=== PATIENT | female | born 1960 | race Caucasian/White ===

== ENCOUNTER 2024-04-19 08:45 | Outpatient (AMB) | payer BC, SELFPAY ==
--- NOTE | 2024-04-19 08:49 | MHC.OFFWIV ---
Intake Vital Signs 04/19/24 08:51 Height 5 ft 6 in Weight 130 lb 2 oz BMI 21.0 BP 132/82 Blood Pressure Location Lt brachial Position Sitting Respiration 14 Pulse 88 Pulse Source Pulse Oximeter Pulse Oximetry (%) 96 Oxygen Delivery Method Room Air Intake Visit Reasons: Posion vaibhav Intake Note: Poison vaibhav both arms and neck, possibly in the left eye Patient Tobacco Use Status: Never used Tobacco Allergies No Known Allergies Allergy (Verified 04/19/24 08:57) Medication List - Last Reconciled 04/19/24 by Barbara Diaz, EYEGLASS FRAMES INSPECTOR- denosumab (Prolia) mg subcut diphenoxylate-atropine 2.5-0.025 mg 1 tab PO BID PRN nortriptyline 50 mg PO BEDTIME nortriptyline 50 mg PO BEDTIME pantoprazole 40 mg PO BID Do you need a note to return to daycare/school/sports/work: No HPI HPI Comments History of Present Illness Details 63-year-old female here today with complaints of poison vaibhav. Reports about 1 week ago was doing [employer] work. She had a towel which she was using to wipe sweat that she placed on the ground. She was wiping her body face and neck with this towel. Shortly thereafter she started to break out in a poison vaibhav rash affecting the back of her neck, chest, bilat arms, bilat ankles and most recently today the left side of her face. Reports history of poison vaibhav dermatitis in the past that has responded well to prednisone. Exam Awake alert oriented no acute distress Speaking in full sentences Scattered poison vaibhav dermatitis to nape of neck, left cheek bone, left periorbital area, anterior chest, bilat arms, bilat ankles Plan Zyrtec Pred taper Self inoculation prevention Education This note is constructed using voice recognition software. While every effort has been made to ensure accuracy in tracer powder blender, still errors may have been included Sometimes, these errors may affect the content or meaning of the given sentence . PFSH Social History Patient Tobacco Use Status: Never used Tobacco Physical Exam Vital Signs: Last Vital Signs Pulse 88 04/19/24 08:51 Resp 14 04/19/24 08:51 BP 132/82 04/19/24 08:51 Pulse Ox 96 04/19/24 08:51 Oxygen Delivery Method Room Air 04/19/24 08:51 BMI result Body Mass Index 21.0 Assessment & Plan Assessment & Plan (1) Poison vaibhav dermatitis: Code(s): L23.7 - Allergic contact dermatitis due to plants, except food Plan: . Medications: New cetirizine (Zyrtec) 10 mg PO DAILY 30 tabs 0RF prednisone 5 tabs x 2 days, 4 tabs x 2 days, 3 tabs x 2 days, 2 tabs x 2 days, 1 tab x 2 days and then STOP. 10 mg PO DIRECTED 10 days 30 tabs 0RF Patient Instructions: Advised to take the medication daily with food. If new lesions crop up while on the taper advised to return to the office as we may need to hold the taper and/or extend the taper to prevent recurrence. Advised to cover the areas to prevent spread using something like a Tegaderm. Wash linen to also help prevent spread. Continue to use the [id number] skin scrubs to help protect the rest of your skin. Do your best to avoid contact. Coding Level of Care Code Est Pt Level 3 (86237) Diagnoses Poison vaibhav dermatitis L23.7
[2024-04-19 08:51] VITALS: BP 132/82; PULSE 88; RESP 14; O2SAT 96; BMI 21.0
== END 2024-04-19 09:07 | disposition home or self-care (01) ==
PROVIDERS: Visit Provider Nurse Practitioner Family
DX: L23.7 Allergic contact dermatitis due to plants, except food (principal)
CPT/HCPCS: 99213

== ENCOUNTER 2024-04-30 08:33 | Outpatient (AMB) | payer BC, SELFPAY ==
--- NOTE | 2024-04-30 08:37 | MHC.PC.OV ---
Vital Signs 04/30/24 08:45 Height 5 ft 6 in Weight 129 lb 6 oz BMI 20.9 BP 118/66 Blood Pressure Location Lt brachial Position Sitting Respiration 14 Pulse 76 Pulse Source Pulse Oximeter Temp 98.2 F Temp Source Oral Pulse Oximetry (%) 98 Oxygen Delivery Method Room Air Intake Visit Reasons: [facility] Intake Note: New patient visit Allergies No Known Allergies Allergy (Verified 04/19/24 08:57) Medication List - Last Reconciled 04/30/24 by Riya Taylor MD denosumab (Prolia) mg subcut diazepam 2 - 4 mg PO DAILY PRN diphenoxylate-atropine 2.5-0.025 mg 1 tab PO BID PRN famotidine 40 mg PO BID nortriptyline 50 mg PO BEDTIME Tobacco use date assessed: 04/30/24 Fall risk assessment: No Falls in past year Last assessed Fall Risk: 04/30/24 Dental Screening Dental Screen Date: 04/30/24 Did you have a dental visit in the last 12 months?: Yes Did you have a dental problem in the last 6 months where you did not have access to dental care?: No Was dental information given to patient?: Patient has dentist HPI HPI Comments History of Present Illness Details The patient is a 64-year-old female with a past medical history of grief, depression with anxiety, insomnia, osteoporosis, lumbar spondylosis and compression deformity, IBS, colon polyps, vitiligo presenting for follow-up Depression with anxiety, insomnia: Her about 4 years ago. she still has a lot of sadness, loneliness. She does have many friends however finds that she is often the 3rd wheel. She has not tried dating. She has seen a therapist in the past. She did not find that very helpful. She tried multiple antidepressants and antianxiety medications do not like the way it made her feel. She continues to take diazepam 2 mg nightly as needed. It also helps with muscle spasm in her lower back. She previously took Ambien for insomnia but stopped that Reports left knee clicking and pain. No swelling. Has been increasingly bothersome over time . More easy bruising over the past few years Mammogram 09/2023 Pap 09/18/2023 ROS CONSTITUTIONAL: Denies weight loss, fever and chills. HEENT: Denies changes in vision and hearing. RESPIRATORY: Denies SOB and cough. CV: Denies palpitations and CP GI: Denies abdominal pain, nausea, vomiting and diarrhea. : Denies dysuria and urinary frequency. MSK: Crepitus b/l knees SKIN: Denies rash and pruritus. NEUROLOGICAL: Denies headache PSYCHIATRIC: Denies recent changes in mood. PHYSICAL EXAM: GENERAL: Alert and oriented x 3. NAD EYES: EOMI. Anicteric. HENT: Moist mucous membranes. No scleral icterus. No cervical lymphadenopathy. LUNGS: Clear to auscultation bilaterally. CARDIOVASCULAR: Regular rate and rhythm. No murmur. No JVD. ABDOMEN: Soft, non-tender +bs EXTREMITIES: No edema. Non-tender. SKIN: No rashes or lesions. Warm. NEUROLOGIC: No focal neurological deficits. CN II-XII grossly intact PSYCHIATRIC: Cooperative. Appropriate mood and affect [facility] Medical History (Updated 04/30/24 @ 10:23 by Riya Taylor MD) Vitiligo Sternal pain Sternal fracture Osteoporosis Lumbar spondylosis Insomnia IBS (irritable bowel syndrome) History of COVID-19 Depression with anxiety Compression deformity of vertebra Colon polyp Family History (Updated 04/30/24 @ 08:57 by Iqra Pacheco CMA) Mother Lung cancer Paternal Grandmother Breast cancer Social History (Updated 04/30/24 @ 08:58 by Iqra Pacheco CMA) Housing: House Patient Tobacco Use Status: Never used Tobacco e-Cigarette/Vaping Use: Never Used Second Hand Smoke Exposure: No service: No Current occupational status: employed 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 1. Little interest or pleasure in doing things: several days 2. Feeling down, depressed, or hopeless: several days 3. Trouble falling or staying asleep, or sleeping too much: several days 4. Feeling tired or having little energy: several days 5. Poor appetite or overeating: several days 6. Feeling bad about yourself - or that you are a failure or have let yourself or your family down: not at all 7. Trouble concentrating on things, such as reading the newspaper or watching television: several days 8. Moving or speaking so slowly that other people could have noticed. Or the opposite - being so fidgety or restless that you have been moving around a lot more than usual: several days 9. Thoughts that you would be better off or of hurting yourself in some way: several days Total score: 8 Depression Screening Interpretation: Positive Depression Screening Done: Yes 47708 - PHQ-9 Billing: Yes Source: Developed by Drs. Philippe Dobson, Johanny Moon, Miguel Fuentes and colleagues, with an educational jesus from [employer]. Thrive Questionnaire Date Thrive assessed: 04/30/24 I am a: Patient What is your living situation today?: I have a steady place to live Within the past 12 months, did the food you bought not last and you didn't have the money to get more?: Never true Within the past 12 months, did you worry whether your food would run out before you got money to buy more?: Never true Do you have trouble paying for medicines?: No Do you have trouble getting transportation to medical appointments?: No Do you have trouble paying your heating and electricity bill?: No Do you have trouble taking care of your child, family member or friend?: No Do you have trouble with day-to-day activities such as bathing, preparing meals, shopping, managing finances, etc.?: No Are you currently unemployed and looking for a job?: No Are you interested in more education?: No Please select the resources that you would like help with: Education Currently or been in a relationship where the following occur: No concerns reported THRIVE Score: 0 AUDIT C Alcohol Use Questionnaire (AUDIT-C) 1. How often do you have a drink containing alcohol?: Never 3. How often do you have six or more drinks on one occasion?: Never Total Score: 0 CARMEN-7 AMB Questionnaire CARMEN-7 Date CARMEN - 7 assessed: 04/30/24 Feeling nervous, anxious, or on edge: 1 = Several days Not being able to stop or control worryin = Several days Worrying too much about different things: 1 = Several days Trouble relaxin = Not at all Being so restless that it is hard to sit still: 0 = Not at all Becoming easily annoyed or irritable: 0 = Not at all Feeling afraid as if something awful might happen: 0 = Not at all Total CARMEN-7 score (0-4 normal; 5-9 mild; 10-14 moderate; 15-21 severe): 3 Source: Developed by Drs. Philippe Dobson, Johanny Moon, Miguel Fuentes and colleagues, with an educational jesus from [employer]. CARMEN-7 Assessment Billing CARMEN-7 Assessment Tool: CARMEN-7 Assessment 23056 Physical exam (Primary Care) Vital Signs: Last Vital Signs Temp 98.2 F 04/30/24 08:45 Pulse 76 04/30/24 08:45 Resp 14 04/30/24 08:45 BP 118/66 04/30/24 08:45 Pulse Ox 98 04/30/24 08:45 Oxygen Delivery Method Room Air 04/30/24 08:45 BMI result Body Mass Index 20.9 Tobacco/Smoking Status: Tobacco use Status Tobacco use date assessed 04/30/24 04/30/24 08:47 Patient Tobacco Use Status Never used Tobacco 04/30/24 08:58 e-Cigarette/Vaping Use Never Used 04/30/24 08:58 PHQ-9: PHQ-9 Score PHQ-9: Total score 8 04/30/24 09:01 Depression Screening Interpretation: Positive Thrive Assessment: Date of Thrive Assessment Date Thrive assessed 04/30/24 04/30/24 09:01 Currently or been in a relationship where the following occur: No concerns reported Assessment and Plan Assessment & Plan (1) IBS (irritable bowel syndrome): Code(s): K58.9 - Irritable bowel syndrome without diarrhea Qualifiers: Irritable bowel syndrome type: unspecified Qualified Code(s): K58.9 - Irritable bowel syndrome without diarrhea Plan: stable (2) Osteoporosis: Code(s): M81.0 - Age-related osteoporosis without current pathological fracture Qualifiers: Osteoporosis type: age-related Presence of current pathological fracture: without current pathological fracture Qualified Code(s): M81.0 - Age-related osteoporosis without current pathological fracture (3) Left knee pain: Code(s): M25.562 - Pain in left knee Qualifiers: Chronicity: chronic Qualified Code(s): M25.562 - Pain in left knee; G89.29 - Other chronic pain (4) Easy bruising: Code(s): R23.3 - Spontaneous ecchymoses (5) Depression: Code(s): F32.A - Depression, unspecified Qualifiers: Depression Type: major depressive disorder Major depression recurrence: recurrent Active/Remission status: in partial remission Qualified Code(s): F33.41 - Major depressive disorder, recurrent, in partial remission Orders: Orders AMB INR Today K58.9 - Irritable bowel syndrome without diarrhea, M25.562 - Pain in left knee, M81.0 - Age-related osteoporosis without current pathological fracture, R23.3 - Spontaneous ecchymoses, Z13.9 - Encounter for screening, unspecified Complete Blood Count Auto Diff Today K58.9 - Irritable bowel syndrome without diarrhea, M25.562 - Pain in left knee, M81.0 - Age-related osteoporosis without current pathological fracture, R23.3 - Spontaneous ecchymoses Prothrombin Time INR Today K58.9 - Irritable bowel syndrome without diarrhea, M25.562 - Pain in left knee, M81.0 - Age-related osteoporosis without current pathological fracture, R23.3 - Spontaneous ecchymoses Medications: New diclofenac sodium 1% (Voltaren Arthritis Pain) apply to left knee 4 grams topical QID 100 grams 1RF Coding Level of Care Code Est Pt Level 4 (98713) Complex EM visit Add On G2211 Diagnoses Irritable bowel syndrome, unspecified type K58.9 Irritable bowel syndrome type: unspecified Age-related osteoporosis without current pathological fracture M81.0 Osteoporosis type: age-related Presence of current pathological fracture: without current pathological fracture Chronic pain of left knee M25.562; G89.29 Chronicity: chronic Easy bruising R23.3 Recurrent major depressive disorder, in partial remission F33.41 Depression Type: major depressive disorder Major depression recurrence: recurrent Active/Remission status: in partial remission Additional Codes CARMEN-7 Assessment Billing - CARMEN-7 Assessment Tool: CARMEN-7 Assessment [id number] ([id number])
[2024-04-30 08:45] VITALS: BP 118/66; PULSE 76; RESP 14; TEMP 36.8; O2SAT 98; BMI 20.9
== END 2024-04-30 09:17 | disposition home or self-care (01) ==
PROVIDERS: Visit Provider Internal Medicine
DX: K58.9 Irritable bowel syndrome, unspecified (principal); M81.0 Age-related osteoporosis without current pathological fracture; F33.41 Major depressive disorder, recurrent, in partial remission; M25.562 Pain in left knee; G89.29 Other chronic pain; R23.3 Spontaneous ecchymoses
CPT/HCPCS: 99214

== ENCOUNTER 2024-04-30 09:36 | Outpatient (REF) | payer BC, SELFPAY ==
[2024-04-30 11:28] LABS: MANUAL DIFF FLAG NO
[2024-04-30 11:37] LABS: Basophils Percent Auto 0.5 % (0-2); Eosinophils Absolute Auto 0.3 X10*3/uL (0.0-0.4); Eosinophils Percent Auto 3.5 % (0-4); Hematocrit 37.3 % (37.0-47.0); Hemoglobin 12.1 g/dl (12.0-16.0); Imm Gran Abs Auto 0.03 X10*3/uL (0.00-0.03); Imm Gran Pct Auto 0.3 % (0.0-0.4); Lymphocytes Absolute Auto 4.9 X10*3/uL (1.2-4.9); Lymphocytes Percent Auto 56.7 % (20-40); Mean Corpuscular HGB Conc 32.4 g/dl (31.0-35.0); Mean Corpuscular Hemoglobin 28.8 pg (27.0-33.0); Mean Corpuscular Volume 88.8 fL (80.0-98.0); Mean Platelet Volume 10.2 fL (9.4-12.3); Monocytes Absolute Auto 0.6 X10*3/uL (0.1-1.2); Monocytes Percent Auto 7.4 % (2-11); Neutrophils Absolute Auto 2.7 x10*3/uL (2.0-8.3); Neutrophils Percent Auto 31.6 % (45-73); Platelet Count 334 X10*3/uL (160-400); Red Cell Distribution Width 12.5 % (11.0-16.0); White Blood Count 8.6 X10*3/uL (4.8-10.8)
[2024-04-30 11:47] LABS: INTERNATIONAL NORM RATIO 0.9 (0.9-1.1); Prothrombin Time 10.6 SEC (11.1-13.3)
== END 2024-04-30 09:37 | disposition home or self-care (01) ==
LOC: HO.WFDLDS 09:36
PROVIDERS: Visit Provider Internal Medicine
DX: M25.562 Pain in left knee (principal); R23.3 Spontaneous ecchymoses; K58.9 Irritable bowel syndrome, unspecified; M81.0 Age-related osteoporosis without current pathological fracture
CPT/HCPCS: 36415; 85025; 85610

== ENCOUNTER 2024-12-09 11:40 | Outpatient (AMB) | payer BC, SELFPAY ==
--- NOTE | 2024-12-09 11:41 | MHC.PC.OV ---
Vital Signs 12/09/24 11:45 Height 5 ft 6 in Weight 132 lb BMI 21.3 BP 139/72 Blood Pressure Location Lt brachial Position Sitting Respiration 16 Pulse 90 Pulse Source Pulse Oximeter Temp 98.4 F Temp Source Oral Pulse Oximetry (%) 100 Oxygen Delivery Method Room Air Intake Visit Reasons: pain on her right shoulder Intake Note: patient here c/o pain on her right shoulder for a couple weeks Data Management Engineer Required: No Is last menstrual period known: No Post menopausal: No Patient : No Allergies No Known Allergies Allergy (Verified 12/09/24 11:52) Medication List - Last Reconciled 12/09/24 by Lexie Heck CNP denosumab (Prolia) mg subcut diazepam 2 - 4 mg PO DAILY PRN diclofenac sodium 1% (Voltaren Arthritis Pain) 4 grams topical QID diphenoxylate-atropine 2.5-0.025 mg 1 tab PO BID PRN famotidine 40 mg PO BID nortriptyline 50 mg PO BEDTIME Tobacco use date assessed: 12/09/24 Fall risk assessment: No Falls in past year Last assessed Fall Risk: 12/09/24 Dental Screening Dental Screen Date: 12/09/24 Did you have a dental visit in the last 12 months?: Yes Did you have a dental problem in the last 6 months where you did not have access to dental care?: No Was dental information given to patient?: Patient has dentist HPI HPI Comments History of Present Illness Details 64-year-old female presents with complaints of upper arm pain for the past 2 months. She describes the pain as achy. The pain was initially intermittent but has been consistent over the past 2 weeks. She believes the pain is provoked by shoveling snow. She denies fall, injury, or trauma. She denies tingling, numbness, or loss of sensation. She has not taken any medication for her pain. [facility] Medical History (Updated 12/09/24 @ 12:06 by Lexie Heck CNP) Vitiligo Sternal pain Sternal fracture Osteoporosis Lumbar spondylosis Insomnia IBS (irritable bowel syndrome) History of COVID-19 Depression with anxiety Compression deformity of vertebra Colon polyp Family History (Updated 04/30/24 @ 08:57 by Iqra Pacheco CMA) Mother Lung cancer Paternal Grandmother Breast cancer Social History (Updated 04/30/24 @ 08:58 by EMMA Carlson Housing: House Patient Tobacco Use Status: Never used Tobacco e-Cigarette/Vaping Use: Never Used Second Hand Smoke Exposure: No Patient : No service: No Current occupational status: employed 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 1. Little interest or pleasure in doing things: nearly every day 2. Feeling down, depressed, or hopeless: not at all 3. Trouble falling or staying asleep, or sleeping too much: not at all 4. Feeling tired or having little energy: several days 5. Poor appetite or overeating: not at all 6. Feeling bad about yourself - or that you are a failure or have let yourself or your family down: not at all 7. Trouble concentrating on things, such as reading the newspaper or watching television: not at all 8. Moving or speaking so slowly that other people could have noticed. Or the opposite - being so fidgety or restless that you have been moving around a lot more than usual: not at all 9. Thoughts that you would be better off or of hurting yourself in some way: not at all Total score: 4 Depression Screening Interpretation: Negative Depression Screening Done: Yes Source: Developed by Drs. Philippe Dobson, Johanny Moon, Miguel Fuentes and colleagues, with an educational jesus from [employer]. Thrive Questionnaire Date Thrive assessed: 04/30/24 I am a: Patient What is your living situation today?: I have a steady place to live Within the past 12 months, did the food you bought not last and you didn't have the money to get more?: I choose not to answer this question Within the past 12 months, did you worry whether your food would run out before you got money to buy more?: I choose not to answer this question Do you have trouble paying for medicines?: I choose not to answer this question Do you have trouble getting transportation to medical appointments?: I choose not to answer this question Do you have trouble paying your heating and electricity bill?: I choose not to answer this question Do you have trouble taking care of your child, family member or friend?: I choose not to answer this question Do you have trouble with day-to-day activities such as bathing, preparing meals, shopping, managing finances, etc.?: I choose not to answer this question Are you currently unemployed and looking for a job?: Yes Are you interested in more education?: I choose not to answer this question Please select the resources that you would like help with: None Currently or been in a relationship where the following occur: I choose not to answer THRIVE Score: 0 AUDIT C Alcohol Use Questionnaire (AUDIT-C) 1. How often do you have a drink containing alcohol?: Never Total Score: 0 CARMEN-7 AMB Questionnaire CARMEN-7 Date CARMEN - 7 assessed: 04/30/24 Feeling nervous, anxious, or on edge: 0 = Not at all Not being able to stop or control worryin = Not at all Worrying too much about different things: 0 = Not at all Trouble relaxin = Not at all Being so restless that it is hard to sit still: 0 = Not at all Becoming easily annoyed or irritable: 0 = Not at all Feeling afraid as if something awful might happen: 0 = Not at all Total CARMEN-7 score (0-4 normal; 5-9 mild; 10-14 moderate; 15-21 severe): 0 Source: Developed by Drs. Philippe Dobson, Johanny Moon, Miguel Fuentes and colleagues, with an educational jesus from [employer]. Review of Systems Const Details: Const Denies chills, Denies fatigue, Denies fever(s), Denies headache(s) and Denies weakness ENT Denies dizziness and Denies headache(s) Card Denies chest pain, Denies lightheadedness, Denies dyspnea and Denies other (Palpitations) Resp Denies cough, Denies dyspnea, Denies wheezing and Denies other ( shortness of breath) GI Denies abdominal pain, Denies melena, Denies hematochezia, Denies change in bowel habits, Denies dyspepsia and Denies nausea Denies hematuria and Denies dysuria Musc Reports as per HPI Skin/Breast Denies rash, Denies unusual bruising and Denies wounds Neuro Denies abnormal gait, Denies dizziness, Denies headache(s), Denies memory loss, Denies numbness, Denies Sensory deficit (Neuro), Denies tingling and Denies weakness Psych Denies anxiety, Denies depression, Denies memory loss Endo Denies cold intolerance, Denies fatigue, Denies heat intolerance, Denies polydipsia and Denies polyuria Aller/Immun Denies wheezing Physical exam (Primary Care) Vital Signs: Last Vital Signs Temp 98.4 F 12/09/24 11:45 Pulse 90 12/09/24 11:45 Resp 16 12/09/24 11:45 BP 139/72 12/09/24 11:45 Pulse Ox 100 12/09/24 11:45 Oxygen Delivery Method Room Air 12/09/24 11:45 BMI result Body Mass Index 21.3 Tobacco/Smoking Status: Tobacco use Status Tobacco use date assessed 12/09/24 12/09/24 11:47 Patient Tobacco Use Status Never used Tobacco 12/09/24 11:43 e-Cigarette/Vaping Use Never Used 12/09/24 11:43 PHQ-9: PHQ-9 Score PHQ-9: Total score 4 12/09/24 11:43 Depression Screening Interpretation: Negative Thrive Assessment: Date of Thrive Assessment Date Thrive assessed 04/30/24 12/09/24 11:43 Currently or been in a relationship where the following occur: I choose not to answer Const Other: General: no acute distress and well developed Nutritional Appearance: well nourished Orientation/consciousness: patient oriented x3 HENMT Head: Yes normocephalic and Yes atraumatic Eyes General: appearance normal, both eyes and all related structures Pupils: Equal, round and reactive pupils present EOM: EOMs intact bilaterally Resp Effort & Inspection: normal respiratory effort Auscultation: clear to auscultation bilaterally Cardio Rate: regular rate Rhythm: regular rhythm Heart sounds: S1 normal heart sound present, S2 normal heart sound present, no gallops, no murmurs and no rubs GI Palpation (GI): No Abdominal aortic bruit present, Soft to palpation, nontender, No hepatosplenomegaly present and No Rebound tenderness present Auscultation: normal bowel sounds General: Yes no CVA tenderness Back/Spine/Pelvis Back: no CVA tenderness Cervical Spine: cervical ROM normal and No Cervical spine tenderness Thoracic/Lumbar Spine: thoraco-lumbar ROM normal, No pain with thoraco-lumbar ROM, No thoracic spinal tenderness and No lumbar spinal tenderness Extrem General: Yes normal to inspection, No edema and No calf tenderness. Right upper arm tenderness, laterally, to palpation, no overt injury or trauma, normal ROM Skin General: warm and dry. Normal skin color. Normal skin turgor Neuro General: patient oriented x3, gait normal and no focal neuro deficit Cranial nerves: Yes Equal, round and reactive pupils present Cognition (Neuro): normal cognition Gait exam (Neuro): Normal gait present Sensory Exam: No Sensory deficit (Neuro) Psych Appearance: grossly normal Affect: normal affect Attitude: cooperative Thought process: Normal thought process present Coding Level of Care Code Est Pt Level 3 (06309) Diagnoses Pain of right upper arm M79.621 Assessment & Plan Assessment & Plan (1) Pain of right upper arm: Code(s): M79.621 - Pain in right upper arm Category: Medical Plan: Reports intermittent right upper arm pain for the past 2 months; progressively worsened and has been consistent in the past 2 weeks; attributes pain to shoveling snow. Right upper arm tenderness, laterally, to palpation, no overt injury or trauma, normal ROM. Naproxen 500 mg twice daily ordered; advised to take as prescribed and with food. Instructed on the risks, benefits, and potential adverse reactions of the medication. Warm/cool compresses encouraged. Follow-up with worsening or new symptoms. Verbalized understanding and agreed with treatment plan. Medications: New naproxen 500 mg PO BID PRN 30 tabs 0RF pain
[2024-12-09 11:45] VITALS: BP 139/72; PULSE 90; RESP 16; TEMP 36.9; O2SAT 100; BMI 21.3
--- OUTSIDE RECORDS SUMMARY | 2024-12-09 13:29 | XMS_ITS | Clinical Summary ---
Author Organization [facility] Address [address] [place] [address] Care Team Providers Care Continuity Clerk Name Role Phone Riya Taylor MD Primary Care Provider [phone] Allergies No known active allergies Medications Medication Sig Dispensed Refills Start Date End Date Status buPROPion (WELLBUTRIN XL) 300 MG 24 hr tablet TAKE ONE TABLET BY MOUTH EVERY 24 HOURS 0 05/01/2021 Active cyclobenzaprine (FLEXERIL) 5 MG tablet cyclobenzaprine 5 mg tablet TAKE 1-2 TABLETS BY MOUTH 3 TIMES A DAY NEEDED FOR BACK PAIN 0 Active diphenoxylate-atro pine (LOMOTIL) 2.5-0.025 MG per tablet Take 1 tablet by mouth every 4 (four) hours as needed. 0 05/01/2021 Active LORazepam (ATIVAN) 0.5 MG tablet lorazepam 0.5 mg tablet 0 Active meloxicam (MOBIC) 15 MG tablet Take 15 mg by mouth daily. 0 04/14/2021 Active nortriptyline (PAMELOR) 50 MG capsule TAKE ONE CAPSULE BY MOUTH AT BEDTIME 0 03/23/2021 Active sulindac (CLINORIL) 200 MG tablet TAKE ONE TABLET BY MOUTH TWICE A DAY FOR 14 DAYS 0 03/23/2021 Active tiZANidine (ZANAFLEX) 2 MG tablet Take 2 mg by mouth every night at bedtime. 0 04/05/2021 Active Active Problems Problem Noted Date Diagnosed Date HTN (hypertension) 05/19/2021 Anemia 05/19/2021 Closed fracture of body of sternum 05/19/2021 Mixed anxiety and depressive disorder 05/01/2021 IBS (irritable bowel syndrome) 08/22/2020 Obstructive sleep apnea 01/10/2019 Overview: [facility] Home Polysomnogram: Date 01/08/2019; Wt 119# JENNIFER 28, AI 25; HI 2; Unclassified apneas 0; Obstructive apneas 134; Central apneas 38; Mixed apneas 13; hypopneas 18; average oxygen saturation 96% (lowest 85% without saturations <88% for 5% or more of study) - Complex Sleep Apnea - moderate; mostly obstructive with central apneas; without sleep related hypoventilation by 2019 home polysomnogram. Osteoporosis 07/21/2017 Family History Medical History Relation Name Comments Hypertension Father Cancer Mother Cancer Sister Relation Name Status Comments Father Mother Sister Social History Tobacco Use Types Packs/Day Years Used Date Smoking Tobacco: Never Smokeless Tobacco: Never Alcohol Use Standard Drinks/Week Comments Yes 1 (1 standard drink = 0.6 oz pur e alcohol) Sex and Gender Information Value Date Recorded Sex Assigned at Not on file Gender Identity Not on file Sexual Orientation Not on file Last Filed Vital Signs Vital Sign Reading Time Taken Comments Blood Pressure 133/76 05/19/2021 1:59 PM EDT Pulse 93 05/19/2021 1:59 PM EDT Temperature 37.2 ??C (99 ??F) 05/19/2021 1:59 PM EDT Respiratory Rate - - Oxygen Saturation 98% 05/19/2021 1:59 PM EDT Inhaled Oxygen Concentration - - Weight 56.4 kg (124 lb 6.4 oz) 05/19/2021 1:59 P M EDT Height 167.6 cm (5' 6 ) 05/19/2021 1:59 PM EDT Body Mass Index 20.08 05/19/2021 1:59 PM EDT Plan of Treatment Health Maintenance Due Date Last Done Comments Hepatitis C Screening 1960 COVID-19 Vaccine (#1) 1960 Depression Screening 1972 Preventative Health Evaluation 1978 DTap / Tdap / Td (1 - Tdap) 1979 Cervical Cancer Screening (P ap Smear) 1981 Colon Cancer Screening (Colonoscopy) 2005 Breast Cancer Screening (Mammogram) 2010 Shingrix-Zoster Vaccine (1 of 2) 2010 Influenza Vaccine (#1) 2024 Pneumococcal Vaccine (1 of 1 - PCV) 2025 RSV Adult > 60+ Yrs or Pregn ant (1 - 1-dose 75+ series) 2035 Hepatitis B Vaccines Aged Out No long er eligible based on patient's age to complete this topic Pneumococcal Vaccine Aged Out No long er eligible based on patient's age to complete this topic RSV Ped < 20 months Aged Out No longe r eligible based on patient's age to complete this topic Care Teams Continuity Clerk Relationship Specialty Start Date End Date Riya Taylor MD PCP - General Internal Medicine 04/23/21
== END 2024-12-09 12:11 | disposition home or self-care (01) ==
PROVIDERS: Visit Provider Nurse Practitioner Family
DX: M79.621 Pain in right upper arm (principal)

== ENCOUNTER 2025-01-20 08:22 | Outpatient (AMB) | payer BC, SELFPAY ==
--- NOTE | 2025-01-20 08:26 | A.OFFPC_ITS ---
Vital Signs 01/20/25 08:33 Height 5 ft 6 in Weight 126 lb 6 oz BMI 20.4 BP 122/72 Blood Pressure Location Rt brachial Position Sitting Respiration 14 Pulse 79 Pulse Source Pulse Oximeter Temp 97.9 F Temp Source Oral Pulse Oximetry (%) 98 Oxygen Delivery Method Room Air Oxygen Flow Rate 97.9 Intake Visit Reasons: Physical Intake Note: Michelle presents in the office today for a physical. Neon Sign Erector Required: No Allergies No Known Allergies Allergy (Verified 01/20/25 08:28) Tobacco use date assessed: 01/20/25 Fall risk assessment: No Falls in past year Last assessed Fall Risk: 01/20/25 Dental Screening Dental Screen Date: 01/20/25 Did you have a dental visit in the last 12 months?: Yes Did you have a dental problem in the last 6 months where you did not have access to dental care?: No Was dental information given to patient?: Patient has dentist HPI HPI Comments History of Present Illness Details The patient is a 64-year-old female with a past medical history of grief, depression with anxiety, insomnia, osteoporosis, lumbar spondylosis and compression deformity, IBS, colon polyps, vitiligo presenting for physical exam Depression with anxiety, insomnia: Her about 4 years ago. Sadness, loneliness. She does have many friends however finds that she is often the 3rd wheel. She has not tried dating. She has seen a therapist in the past. She did not find that very helpful. She tried multiple antidepressants and antianxiety medications do not like the way it made her feel. Stable on diazepam 2 mg nightly as needed. It also helps with muscle spasm in her lower back. She previously took Ambien for insomnia but stopped that Continued left knee clicking and pain. No swelling. Has been increasingly bothersome over time. Also with 2 month history of right shoulder pain. Nerve pain through the tricep. Mammogram 10/2024 Pap UTD-Dr Xie Colonoscopy-Dr VillalpandoJiyxgpz-[id number]? 2020?-will call to see when due. ROS see HPI PHYSICAL EXAM: GENERAL: Alert and oriented x 3. NAD EYES: EOMI. Anicteric. HENT: Moist mucous membranes. No scleral icterus. b/l scant middle ear effusion.s No cervical lymphadenopathy. LUNGS: Clear to auscultation bilaterally. CARDIOVASCULAR: Regular rate and rhythm. No murmur. No JVD. ABDOMEN: Soft, non-tender +bs EXTREMITIES: No edema. Non-tender. SKIN: No rashes or lesions. Warm. NEUROLOGIC: No focal neurological deficits. CN II-XII grossly intact PSYCHIATRIC: Cooperative. 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 1. Little interest or pleasure in doing things: not at all 2. Feeling down, depressed, or hopeless: several days 3. Trouble falling or staying asleep, or sleeping too much: several days 5. Poor appetite or overeating: several days 6. Feeling bad about yourself - or that you are a failure or have let yourself or your family down: not at all 7. Trouble concentrating on things, such as reading the newspaper or watching television: not at all 9. Thoughts that you would be better off or of hurting yourself in some way: not at all Depression Screening Interpretation: Negative Depression Screening Done: Yes 40278 - PHQ-9 Billing: Patient declined-do not bill Source: Developed by Drs. Philippe Dobson, Johanny Moon, Miguel Fuentes and colleagues, with an educational jesus from [employer]. Thrive Questionnaire Date Thrive assessed: 01/20/25 I am a: Patient What is your living situation today?: I have a steady place to live Within the past 12 months, did the food you bought not last and you didn't have the money to get more?: I choose not to answer this question Within the past 12 months, did you worry whether your food would run out before you got money to buy more?: I choose not to answer this question Do you have trouble paying for medicines?: I choose not to answer this question Do you have trouble getting transportation to medical appointments?: I choose not to answer this question Do you have trouble paying your heating and electricity bill?: I choose not to answer this question Do you have trouble taking care of your child, family member or friend?: I choose not to answer this question Do you have trouble with day-to-day activities such as bathing, preparing meals, shopping, managing finances, etc.?: I choose not to answer this question Are you currently unemployed and looking for a job?: Yes Are you interested in more education?: I choose not to answer this question Please select the resources that you would like help with: None Currently or been in a relationship where the following occur: I choose not to answer THRIVE Score: 0 AUDIT C Alcohol Use Questionnaire (AUDIT-C) 2. How many drinks containing alcohol do you have on a typical day when you are drinking?: 1 or 2 3. How often do you have six or more drinks on one occasion?: Never Total Score: 0 CARMEN-7 AMB Questionnaire CARMEN-7 Date CARMEN - 7 assessed: 01/20/25 Feeling nervous, anxious, or on edge: 0 = Not at all Not being able to stop or control worryin = Not at all Worrying too much about different things: 0 = Not at all Being so restless that it is hard to sit still: 1 = Several days Becoming easily annoyed or irritable: 0 = Not at all Feeling afraid as if something awful might happen: 0 = Not at all Source: Developed by Drs. Philippe Dobson, Johanny Moon, Miguel Fuentes and colleagues, with an educational jesus from [employer]. CARMEN-7 Assessment Billing CARMEN-7 Assessment Tool: CARMEN-7 Assessment 94301 Physical exam (Primary Care) Vital Signs: Last Vital Signs Temp 97.9 F 01/20/25 08:33 Pulse 79 01/20/25 08:33 Resp 14 01/20/25 08:33 BP 122/72 01/20/25 08:33 Pulse Ox 98 01/20/25 08:33 Oxygen Delivery Method Room Air 01/20/25 08:33 Oxygen Flow Rate 97.9 01/20/25 08:33 BMI result Body Mass Index 20.4 Tobacco/Smoking Status: Tobacco use Status Tobacco use date assessed 01/20/25 01/20/25 08:38 Patient Tobacco Use Status Never used Tobacco 01/20/25 08:38 e-Cigarette/Vaping Use Never Used 01/20/25 08:38 Depression Screening Interpretation: Negative Thrive Assessment: Date of Thrive Assessment Date Thrive assessed 01/20/25 01/20/25 08:38 Currently or been in a relationship where the following occur: I choose not to answer Coding Level of Care Code Est Pt Prev Care 40-64y(39234) Diagnoses Physical exam Z00.00 Pain of right upper arm M79.621 Chronic pain of left knee M25.562; G89.29 Chronicity: chronic Additional Codes CARMEN-7 Assessment Billing - CARMEN-7 Assessment Tool: CARMEN-7 Assessment 60208 ([id number]) Assessment & Plan Assessment & Plan (1) Physical exam: Code(s): Z00.00 - Encounter for general adult medical examination without abnormal findings Category: Medical Plan: 64 year old female for physical exam. interval history reviewed. Medications reconciled. Depression/Grief stable (2) Pain of right upper arm: Code(s): M79.621 - Pain in right upper arm Category: Medical (3) Left knee pain: Code(s): M25.562 - Pain in left knee Category: Medical Qualifiers: Chronicity: chronic Qualified Code(s): M25.562 - Pain in left knee; G89.29 - Other chronic pain Plan 64 year old female for physical exam. interval history reviewed. Medications reconciled. Depression/Grief stable Right shoulder, left knee pain-referral to ortho. xrays-she will get them done at [facility] Orders: Orders XR knee LT 3V Today G89.29 - Other chronic pain, M25.562 - Pain in left knee XR shoulder RT min 2V Today M25.819 - Other specified joint disorders, unspecified shoulder, M79.621 - Pain in right upper arm Complete Blood Count Auto Diff Today F33.41 - Major depressive disorder, recurrent, in partial remission, K58.9 - Irritable bowel syndrome, unspecified, Z13.220 - Encounter for screening for lipoid disorders, Z13.228 - Encounter for screening for other metabolic disorders Comprehensive Met. Panel Today F33.41 - Major depressive disorder, recurrent, in partial remission, K58.9 - Irritable bowel syndrome, unspecified, Z13.220 - Encounter for screening for lipoid disorders, Z13.228 - Encounter for screening for other metabolic disorders Lipid Panel Today F33.41 - Major depressive disorder, recurrent, in partial remission, K58.9 - Irritable bowel syndrome, unspecified, Z13.220 - Encounter for screening for lipoid disorders, Z13.228 - Encounter for screening for other metabolic disorders Vitamin D 25-OH (D2 and D3) Today F33.41 - Major depressive disorder, recurrent, in partial remission, K58.9 - Irritable bowel syndrome, unspecified, Z13.220 - Encounter for screening for lipoid disorders, Z13.228 - Encounter for screening for other metabolic disorders Hemoglobin A1c Today F33.41 - Major depressive disorder, recurrent, in partial remission, K58.9 - Irritable bowel syndrome, unspecified, Z13.220 - Encounter for screening for lipoid disorders, Z13.228 - Encounter for screening for other metabolic disorders TSH reflex Free T4 Today E04.1 - Nontoxic single thyroid nodule Referrals Orthopedics Referral G89.29 - Other chronic pain, M25.562 - Pain in left knee, M25.819 - Other specified joint disorders, unspecified shoulder Medications: New diazepam 2 - 4 mg (1 - 2 x 2 mg) PO DAILY PRN 60 tabs 2RF anxiety
[2025-01-20 08:33] VITALS: BP 122/72; PULSE 79; RESP 14; TEMP 36.6; O2SAT 98; BMI 20.4
--- OUTSIDE RECORDS SUMMARY | 2025-01-20 08:49 | XMS_ITS | Encounter Summary ---
Author Organization [facility] Address [address] [place] [address] Care Team Providers Care It Security Analyst Name Role Phone Beckie Allen MD Primary Care Provider Unavail able Riya Bustillo MD Primary Care Provider Unavaila ble Encounter Details Date Type Department Care Team Description 07/25/2017 Release of Information Medical Records [address] [place] [id number] Abstract, Provider Social History Tobacco Use Types Packs/Day Years Used Date Smoking Tobacco: Never Alcohol Use Standard Drinks/Week Comments Yes 3 (1 standard drink = 0.6 oz pur e alcohol) Sex Assigned at Date Recorded Not on file documented as of this encounter Plan of Treatment Not on file documented as of this encounter Visit Diagnoses Not on filedocumented in this encounter Care Teams It Security Analyst Relationship Specialty Start Date End Date Beckie Allen MD PCP - General Internal Medicine 06/21/17 04/12/23 Riya Bustillo MD PCP - General Internal Medicine 04/13/23 documented as of this encounter
--- OUTSIDE RECORDS SUMMARY | 2025-01-20 08:49 | XMS_ITS | Encounter Summary ---
Author Organization [facility] Address [address] [place] [address] Care Team Providers Care Stacker And Sorter Operator Name Role Phone Beckie Allen MD Primary Care Provider Unavail able Riya Bustillo MD Primary Care Provider David green Encounter Details Date Type Department Care Team Description 09/17/2020 Telephone Medicine/Pediatrics - [address] [id number] Riya Bustillo MD Social History Tobacco Use Types Packs/Day Years Used Date Smoking Tobacco: Never Smokeless Tobacco: Never Alcohol Use Standard Drinks/Week Comments Yes 3 (1 standard drink = 0.6 oz pur e alcohol) Sex Assigned at Date Recorded Not on file documented as of this encounter Miscellaneous Notes * Telephone Encounter - Rocio Oneill L.P.N. - 09/17/2020 10:54 AM EST Pt returned our call. REviewed additional questions per provider. Pt denies any vomiting with the headache or having new flashes of light, vision loss. Will keep appt this afternoon. * Telephone Encounter - Lisa Palomino R.N. - 09/17/2020 10:45 AM EST [phone] (home) [phone] (work) Left vm for pt to return my call and speak with a nurse to check on status * Telephone Encounter - Riya Bustillo MD - 09/17/2020 9:10 AM EST If patient is having any vomiting with the headache or having new flashes of light, vision loss then she needs to go to [facility] to have CT scan and an optho consult documented in this encounter Plan of Treatment Not on file documented as of this encounter Visit Diagnoses Not on filedocumented in this encounter Care Teams Stacker And Sorter Operator Relationship Specialty Start Date End Date Beckie Allen MD PCP - General Internal Medicine 06/21/17 04/12/23 Riya Bustillo MD PCP - General Internal Medicine 04/13/23 documented as of this encounter
--- OUTSIDE RECORDS SUMMARY | 2025-01-20 08:49 | XMS_ITS | Clinical Summary ---
Author Organization [facility] Address [address] [place] [address] Care Team Providers Care Telegraph Office Telephone Clerk Name Role Phone Riya Bustillo MD Primary Care Provider Unavaila ble Allergies No known active allergies Medications Medication Sig Dispensed Refills Start Date End Date Status diphenoxylate-atropin e (LOMOTIL) 2.5-0.025 MG per tabletIndications:Mildred n in both hands,Joint stiffness Take 1 tablet by mouth daily as needed. 0 Active sumatriptan (IMITREX) 50 MG tablet Take once at first sign of migraine. If initial dose was partially effective or headache recurs, may repeat a dose after 2 hours. 9 Tab 0 06/19/2020 Active alprazolam (XANAX) 0.25 MG tablet Take 1 Tab by mouth at bedtime as needed for Sleep or Anxiety for up to 21 days. 21 Tab 0 09/09/2020 Active diazepam (VALIUM) 2 MG tablet Take 1-2 tab every 12 hours as needed for anxiety/sleep 28 Tab 0 09/17/2020 Active nortriptyline (PAMELOR) 50 MG capsule Take 1 Cap by mouth at bedtime. 90 Cap 1 09/17/2020 Active Active Problems Problem Noted Date Obstructive sleep apnea moderate JENNIFER 28 01/10/2019 Overview: [facility] Home Polysomnogram: Date 01/08/2019; Wt 119# JENNIFER 28, AI 25; HI 2; Unclassified apneas 0; Obstructive apneas 134; Central apneas 38; Mixed apneas 13; hypopneas 18; average oxygen saturation 96% (lowest 85% without saturations <88% for 5% or more of study) - Complex Sleep Apnea - moderate; mostly obstructive with central apneas; without sleep related hypoventilation by 2019 home polysomnogram. NSAID long-term use 12/25/2017 Osteopenia of both hands 10/27/2017 Overview: Xrays with osteopenia 10/2017. Follows with rheumatology, possibly early OA. On meloxicam. Lactose intolerance 07/21/2017 Osteoporosis 07/21/2017 IBS (irritable bowel syndrome) HTN (hypertension) Resolved Problems Problem Noted Date Resolved Date Pain in both hands 12/25/2017 12/25/2017 Pain in both hands 10/27/2017 10/27/2017 Overview: Xrays with osteopenia 10/2017. Follows with rheumatology, possibly early OA. On meloxicam. Hand pain 09/28/2017 09/28/2017 Joint stiffness 09/28/2017 09/28/2017 Essential hypertension 07/21/2017 7 Other irritable bowel syndrome 07/21/2017 1 11/29/2016 Immunizations Name Administration Dates Next Due Hepatitis-A (>19YRS) 01/24/2011 Family History Medical History Relation Name Comments Hypertension Father Cancer of the Lung Mother Thyroid Disorder Sister 1 Thyroid Disorder Sister 2 Relation Name Status Comments Daughter Alive Father Mother Sister 1 Sister 2 Social History Tobacco Use Types Packs/Day Years Used Date Smoking Tobacco: Never Smokeless Tobacco: Never Alcohol Use Standard Drinks/Week Comments Yes 3 (1 standard drink = 0.6 oz pur e alcohol) Sex Assigned at Date Recorded Not on file Last Filed Vital Signs Vital Sign Reading Time Taken Comments Blood Pressure 132/84 09/17/2020 3:33 PM EST Pulse 88 09/17/2020 3:33 PM EST Temperature 36.8 ??C (98.3 ??F) 09/17/2020 3:33 PM ES T Respiratory Rate 12 09/17/2020 3:33 PM EST Oxygen Saturation 99% 09/17/2020 3:33 PM EST Inhaled Oxygen Concentration - - Weight 56.5 kg (124 lb 8 oz) 09/17/2020 3:33 PM EST Height 167.6 cm (5' 6 ) 09/17/2020 3:33 PM EST Body Mass Index 20.09 09/17/2020 3:33 PM EST Plan of Treatment Health Maintenance Due Date Last Done Comments Covid-19 Vaccine (#1) 1960 DTAP/TDAP/TD (1 - Tdap) 1979 SHINGLES VACCINE (1 of 2) 2010 MAMMOGRAM 10/25/2018 10/25/2017 (Exte rnal Completion), 10/25/2016 (External Completion), 10/24/2016 CERVICAL CANCER SCREENING 05/16/20212017 (External Completion) CHOLESTEROL SCREENING 11/21/2023 11/21/2018, 017 PNEUMOCOCCAL VACCINE FOR HIG H RISK PATIENTS (#1) 2025 INFLUENZA (Season Ended) 2025 019 (External Completion) COLON CANCER SCREENING 11/11/2025 6 (External Completion) HEPATITIS C SCREENING Completed 07/27/2017 Care Teams Telegraph Office Telephone Clerk Relationship Specialty Start Date End Date Riya Bustillo MD PCP - General Internal Medicine 04/13/23
--- OUTSIDE RECORDS SUMMARY | 2025-01-20 08:49 | XMS_ITS | Clinical Summary ---
Author Organization [facility] Address [address] [place] [address] Care Team Providers Care Geodesy Teacher Name Role Phone Riya Taylor MD Primary Care Provider [phone] Allergies No known active allergies Medications Medication [...] syndrome) 08/22/2020 Obstructive sleep apnea 01/10/2019 Overview: [facility] Home Polysomnogram: Date 01/08/2019; Wt [...] age to complete this topic Care Teams Geodesy Teacher Relationship Specialty Start Date End Date Riya Taylor MD PCP - General Internal Medicine 04/23/21
== END 2025-01-20 09:09 | disposition home or self-care (01) ==
LOC: HO.HMCFM 08:23
PROVIDERS: PCP Internal Medicine; Visit Provider Internal Medicine
DX: Z00.00 Encounter for general adult medical examination without abnormal findings (principal); M79.621 Pain in right upper arm; M25.562 Pain in left knee; G89.29 Other chronic pain

== ENCOUNTER → 2025-01-20 08:22 | Outpatient (BNVA) | payer BC, SELFPAY | PROVIDERS: Visit Provider Internal Medicine | DX: Z00.00 Encounter for general adult medical examination without abnormal findings (principal); M79.621 Pain in right upper arm; G89.29 Other chronic pain; M25.562 Pain in left knee | CPT/HCPCS: 96127 ==

== ENCOUNTER 2025-01-20 09:20 | Outpatient (REF) | payer BC, SELFPAY ==
--- OUTSIDE RECORDS SUMMARY | 2025-01-20 10:24 | XMS_ITS | Clinical Summary ---
Author Organization [facility] Address [address] [place] [address] Care Team Providers Care Pharmacovigilance Safety Expert Name Role Phone Riya Taylor MD Primary Care Provider [phone] Allergies No known active allergies Medications Medication [...] syndrome) 08/22/2020 Obstructive sleep apnea 01/10/2019 Overview: [facility] Home Polysomnogram: Date 01/08/2019; Wt 119# JENNIFER [...] age to complete this topic Care Teams Pharmacovigilance Safety Expert Relationship Specialty Start Date End Date Riya Taylor MD PCP - General Internal Medicine 04/23/21
[2025-01-20 11:22] LABS: MANUAL DIFF FLAG NO
[2025-01-20 11:29] LABS: Basophils Percent Auto 0.3 % (0-2); Eosinophils Absolute Auto 0.2 X10*3/uL (0.0-0.4); Eosinophils Percent Auto 2.6 % (0-4); Hematocrit 39.8 % (37.0-47.0); Hemoglobin 12.7 g/dl (12.0-16.0); Imm Gran Abs Auto 0.02 X10*3/uL (0.00-0.03); Imm Gran Pct Auto 0.3 % (0.0-0.4); Lymphocytes Absolute Auto 1.8 X10*3/uL (1.2-4.9); Lymphocytes Percent Auto 26.7 % (20-40); Mean Corpuscular HGB Conc 31.9 g/dl (31.0-35.0); Mean Corpuscular Hemoglobin 28.8 pg (27.0-33.0); Mean Corpuscular Volume 90.2 fL (80.0-98.0); Mean Platelet Volume 11.1 fL (9.4-12.3); Monocytes Absolute Auto 0.4 X10*3/uL (0.1-1.2); Monocytes Percent Auto 6.6 % (2-11); Neutrophils Absolute Auto 4.2 x10*3/uL (2.0-8.3); Neutrophils Percent Auto 63.5 % (45-73); Platelet Count 300 X10*3/uL (160-400); Red Blood Count 4.41 X10*6/uL (4.20-5.50); Red Cell Distribution Width 12.1 % (11.0-16.0); White Blood Count 6.6 X10*3/uL (4.8-10.8)
[2025-01-20 11:37] LABS: Estimated Average Glucose 111 mg/dL; Hemoglobin A1c % 5.5 % (<6.0); Total Hemoglobin (HGBA1C) 3401.2681 umol/L
[2025-01-20 12:58] LABS: Alanine Aminotransferase 26 U/L (0-31); Albumin Level 4.1 g/dL (3.5-5.0); Anion Gap 11 (12-20); Aspartate Amino Transferase 35 U/L (5-31); Bilirubin Total 0.3 mg/dL (0.0-1.0); Blood Urea Nitrogen 14 mg/dL (9-16); Carbon Dioxide 24 mmol/L (22-29); Chloride 110 mmol/L (96-108); Cholesterol 164 mg/dL (<200); Estimated Glomerular Filt Rate > 60; Glucose Random 94 mg/dL (60-115); HDL Cholesterol 55 mg/dL (>40); LDL Cholesterol Calculated 92 mg/dL (<100); Potassium 4.1 mmol/L (3.3-5.1); Sodium 141 mmol/L (135-145); Total Protein 6.7 g/dL (6.5-8.0); Triglycerides 88 mg/dL (<150)
[2025-01-20 13:04] LABS: Alkaline Phosphatase 41 U/L (39-117)
[2025-01-24 16:04] LABS: Vitamin D 25-OH, D2 <4 ng/mL; Vitamin D 25-OH, D3 22 ng/mL; Vitamin D 25-OH, Total 22 ng/mL (30-100)
== END 2025-01-20 09:21 | disposition home or self-care (01) ==
LOC: HO.WFDLDS 09:20
PROVIDERS: Visit Provider Internal Medicine
DX: F33.41 Major depressive disorder, recurrent, in partial remission (principal); K58.9 Irritable bowel syndrome, unspecified; Z13.228 Encounter for screening for other metabolic disorders; Z13.220 Encounter for screening for lipoid disorders; E04.1 Nontoxic single thyroid nodule; Z13.1 Encounter for screening for diabetes mellitus
CPT/HCPCS: 36415; 80053; 80061; 82306; 83036; 84443; 85025

== ENCOUNTER 2025-02-17 16:17 | Outpatient (AMB) | payer BC, SELFPAY ==
--- NOTE | 2025-02-17 16:12 | MHC.PC.OV ---
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 [employer] Equipment Required: No Allergies No Known Allergies Allergy (Verified 02/17/25 16:13) Tobacco use date assessed: 02/17/25 Fall risk assessment: No Falls in past year Last assessed Fall Risk: 02/17/25 Dental Screening Dental Screen Date: 02/17/25 Did you have a dental visit in the last 12 months?: Yes Did you have a dental problem in the last 6 months where you did not have access to dental care?: No Was dental information given to patient?: Patient has dentist HPI HPI Comments History of Present Illness Details The patient is a 64-year-old female with a past medical history of grief, depression with anxiety, insomnia, osteoporosis, lumbar spondylosis and compression deformity, IBS, colon polyps, vitiligo presenting for follow up At her last visit noted Continued left knee clicking and pain. No swelling. Has been increasingly bothersome over time. Also with 2 month history of right shoulder pain. Nerve pain through the tricep. She had xrays ordered and orthopedic consult placed. The xray of the left knee was normal. The xray of the right shoulder showed glenohumeral narrowing. Depression with anxiety, insomnia: Her about 4 years ago. Sadness, loneliness. She does have many friends however finds that she is often the 3rd wheel. She has not tried dating. She has seen a therapist in the past. She did not find that very helpful. She tried multiple antidepressants and antianxiety medications do not like the way it made her feel. Stable on diazepam 2 mg nightly as needed. It also helps with muscle spasm in her lower back. She previously took Ambien for insomnia but stopped that Mammogram 10/2024 Pap UTD-Dr Xie Colonoscopy-Dr VillalpandoHdrddai-[id number]? 2020?-will call to see when due. ROS see HPI PHYSICAL EXAM: Telehealth [facility] Medical History Vitiligo Sternal pain Sternal fracture Osteoporosis Lumbar spondylosis Insomnia IBS (irritable bowel syndrome) History of COVID-19 Depression with anxiety Compression deformity of vertebra Colon polyp Family History Mother Lung cancer Paternal Grandmother Breast cancer Social History Housing: House Alcohol intake: former Patient Tobacco Use Status: Never used Tobacco e-Cigarette/Vaping Use: Never Used Second Hand Smoke Exposure: No Use of substances other than those prescribed or required for medical reasons: No service: No Current occupational status: employed 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 How often do you have a drink containing alcohol?: Monthly or less 2. How many drinks containing alcohol do you have on a typical day when you are drinking?: 1 or 2 3. How often do you have six or more drinks on one occasion?: Never Total Score: 1 CARMEN-7 AMB Questionnaire CARMEN-7 Date CARMEN - 7 assessed: 01/20/25 Source: Developed by Drs. Philippe Dobson, Johanny Moon, Miguel Fuentes and colleagues, with an educational jesus from [employer]. Physical exam (Primary Care) Tobacco/Smoking Status: Tobacco use Status Tobacco use date assessed 02/17/25 02/17/25 16:16 Patient Tobacco Use Status Never used Tobacco 02/17/25 16:16 e-Cigarette/Vaping Use Never Used 02/17/25 16:16 Thrive Assessment: Date of Thrive Assessment Date Thrive assessed 01/20/25 02/17/25 16:16 Telehealth Telehealth Telehealth Platform: Telephone Location of provider rendering services: practice address Location of patient: address on file Patient Identification confirmed using: Name, : Yes Telehealth method: voice only Patient verbally consented to treatment: Yes Patient verbally consented to billing insurance company: Yes Patient informed of any privacy concerns related to visit: Yes Minutes spent on Phone/Video with Pt.: 12 Coding Level of Care Code Tele Est Pt Level 2 (36265) Diagnoses Shoulder impingement M25.819 Chronic pain of left knee M25.562; G89.29 Chronicity: chronic Assessment & Plan Assessment & Plan (1) Shoulder impingement: Code(s): M25.819 - Other specified joint disorders, unspecified shoulder Category: Medical (2) Left knee pain: Code(s): M25.562 - Pain in left knee Category: Medical Qualifiers: Chronicity: chronic Qualified Code(s): M25.562 - Pain in left knee; G89.29 - Other chronic pain Plan xrays reviewed with patient. Recommend ortho consult as previously planned
--- OUTSIDE RECORDS SUMMARY | 2025-02-17 17:35 | XMS_ITS | Clinical Summary ---
Author Organization [facility] Address [address] [place] [address] Care Team Providers Care Motor Coach Bus Driver Name Role Phone Riya Taylor MD Primary Care Provider [phone] Allergies No known active allergies Medications Medication [...] syndrome) 08/22/2020 Obstructive sleep apnea 01/10/2019 Overview: [facility] Home Polysomnogram: Date 01/08/2019; Wt [...] age to complete this topic Care Teams Motor Coach Bus Driver Relationship Specialty Start Date End Date Riya Taylor MD PCP - General Internal Medicine 04/23/21
== END 2025-02-17 16:49 | disposition home or self-care (01) ==
LOC: HO.HMCFM 16:17
PROVIDERS: PCP Internal Medicine; Visit Provider Internal Medicine
DX: M25.819 Other specified joint disorders, unspecified shoulder (principal); M25.562 Pain in left knee; G89.29 Other chronic pain

== ENCOUNTER → 2025-02-17 16:17 | Outpatient (BNVA) | payer BC, SELFPAY | PROVIDERS: PCP Internal Medicine; Visit Provider Internal Medicine ==

== ENCOUNTER 2025-03-06 15:49 | Outpatient (REF) | payer BC, SELFPAY ==
--- NOTE | ~2025-03-06 | US_ITS ---
EXAMINATION: US THYROID HISTORY: E04.1 - Nontoxic single thyroid nodule TECHNIQUE: Real-time grayscale ultrasound imaging was performed and images were reviewed. COMPARISON: There are no prior studies for comparison. FINDINGS: SIZE: The right thyroid lobe measures 4.4 x 1.5 x 1.7 cm. The left thyroid lobe measures 4.3 x 1.3 x 1.0 cm. The isthmus measures 2 mm. FLOW: Flow to the gland is normal. ECHOGENICITY: The echotexture of the gland is homogeneous. NODULES: No nodules are identified. US/US thyroid IMPRESSION: Unremarkable thyroid ultrasound. ACR TI-RADS Guidelines TR1 (0 points): Benign, No follow-up or biopsy required TR2 (2 points): Not Suspicious, No biopsy or follow up indicated TR3 (3 points): Mildly Suspicious, FNA if >= 2.5 cm, Follow if >= 1.5 cm TR4 (4-6 points): Moderately Suspicious, FNA if >= 1.5 cm, Follow if >= 1.0 cm TR5 (>=7 points): Highly Suspicious, FNA if >= 1.0 cm, Follow if >= 0.5 cm Electronically signed by: Philippe Montez MD 03/07/2025 07:23 AM EDT
== END 2025-03-06 15:50 | disposition home or self-care (01) ==
LOC: HO.US 15:49
PROVIDERS: PCP Internal Medicine; Visit Provider Internal Medicine
DX: E04.1 Nontoxic single thyroid nodule (principal)
CPT/HCPCS: 76536

== ENCOUNTER → 2025-03-06 15:51 | Outpatient (BNV) | payer BC, SELFPAY | PROVIDERS: PCP Internal Medicine; Visit Provider Radiology Diagnostic Radiology | DX: E04.1 Nontoxic single thyroid nodule (principal) | CPT/HCPCS: 76536 ==

== ENCOUNTER 2025-03-24 08:53 | Outpatient (REF) | payer BC, SELFPAY ==
--- NOTE | ~2025-03-24 | XR_ITS ---
EXAMINATION: XR KNEE 3 VIEWS LEFT HISTORY: M25.562 - Pain in left knee COMPARISON: There are no prior studies available for comparison. FINDINGS: Standing AP views of both knees and additional lateral and sunrise patellar views of the left knee are submitted. Osseous mineralization is normal. There is no fracture or dislocation. The joint spaces are preserved. The soft tissues are unremarkable. There is no joint effusion. XR/XR knee LT 3V IMPRESSION: Unremarkable examination of the left knee. Electronically signed by: Philippe Montez MD 03/24/2025 12:15 PM EDT
== END 2025-03-24 08:54 | disposition home or self-care (01) ==
LOC: HO.HOSX 08:53
PROVIDERS: Visit Provider Physician Assistant
DX: M25.562 Pain in left knee (principal)
CPT/HCPCS: 73562

== ENCOUNTER 2025-03-24 10:51 | Outpatient (AMB) | payer BC, SELFPAY ==
--- NOTE | 2025-03-24 10:57 | MHC.OFFVIS ---
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 Patient was referred by her PCP for left knee pain and clicking that has been increasingly getting worse. Patient reports her symptoms have been present for about a year. No injury. Her pain is located inside her knee and describes a burning sensation. Her pain is intermittent, stating depending on how long she is on her feet. No numbness or tingling. No previous treatment. 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 She has been experiencing discomfort specifically behind the anterior portion of the knee and she complains of a crunching or grinding sound. She feels the discomfort worsens when she is on her feet for a long period of time [facility] Medical History (Updated 03/24/25 @ 11:19 by Berna Bird PA-C) Vitiligo Sternal pain Sternal fracture Osteoporosis Lumbar spondylosis Insomnia IBS (irritable bowel syndrome) History of COVID-19 Depression with anxiety Compression deformity of vertebra Colon polyp Surgical History History of colonoscopy (~03/26/21) Family History Mother Lung cancer Paternal Grandmother Breast cancer Social History Housing: House Alcohol intake: former Patient Tobacco Use Status: Never used Tobacco e-Cigarette/Vaping Use: Never Used Second Hand Smoke Exposure: No service: No Current occupational status: employed 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 Current occupational exposures/hazards: No Cognitive needs: No Hearing needs: Yes Vision needs: No Review of Systems Const All systems reviewed & are unremarkable except as noted in HPI and below Physical Exam Vital Signs: BMI result Body Mass Index 20.3 Const General: cooperative and no acute distress Orientation/consciousness: patient oriented x3 Resp Effort & Inspection: normal respiratory effort and able to speak in complete sentences Cardio Peripheral pulses: Peripheral pulses 2+ throughout Neuro General: patient oriented x3 Extrem Other: Left knee skin intact, no erythema or joint effusion. Lateral retropatellar tenderness. ROM full with crepitus. Negative steinmans. No ligamentous laxity. NVI. Results Reviewed Results Reviewed: X-rays of the left knee obtained in the office today and reviewed by me show mild medial compartment narrowing with patellofemoral arthritis. Assessment & Plan Assessment & Plan (1) Patellofemoral arthritis of left knee: Code(s): M17.12 - Unilateral primary osteoarthritis, left knee Category: Medical Plan: We discussed options today which include continued conservative treatment with physical therapy and anti-inflammatories. I did send a prescription for Celebrex to the pharmacy to take twice a day for 2 weeks. She will begin a course of physical therapy an order was placed today and she will contact an office closer to home to make an appointment. If symptoms persist or worsen she can contact our office to discuss steroid injection otherwise follow up as needed Orders: Orders XR knee LT 3V Today M25.562 - Pain in left knee PT Evaluation and Treatment Today M17.12 - Unilateral primary osteoarthritis, left knee Medications: New celecoxib (Celebrex) 200 mg PO BID 60 caps 3RF 30 days Coding Level of Care Code New Pt Level 3 (36840) Complex EM visit Add On G2211 Diagnoses Patellofemoral arthritis of left knee M17.12
[2025-03-24 10:58] VITALS: BMI 20.3
--- OUTSIDE RECORDS SUMMARY | 2025-03-24 12:19 | XMS_ITS | Clinical Summary ---
Author Organization [facility] Address [address] [place] [address] Care Team Providers Care Recreation Facility Manager Name Role Phone Riya Bustillo MD Primary [...] sleep apnea moderate JENNIFER 28 01/10/2019 Overview: [facility] Home Polysomnogram: Date 01/08/2019; Wt [...] HEPATITIS C SCREENING Completed 07/27/2017 Care Teams Recreation Facility Manager Relationship Specialty Start Date End Date Riya Bustillo MD PCP - General Internal Medicine 04/13/23
== END 2025-03-24 11:24 | disposition home or self-care (01) ==
LOC: HO.HOS 10:51
PROVIDERS: PCP Internal Medicine; Visit Provider Physician Assistant
DX: M17.12 Unilateral primary osteoarthritis, left knee (principal)
CPT/HCPCS: 99203

== ENCOUNTER → 2025-03-24 10:54 | Outpatient (BNV) | payer BC, SELFPAY | PROVIDERS: Visit Provider Radiology Diagnostic Radiology | DX: M25.562 Pain in left knee (principal) | CPT/HCPCS: 73562 ==

== ENCOUNTER 2025-05-02 09:15 | Outpatient (REF) | payer BC, SELFPAY ==
--- OUTSIDE RECORDS SUMMARY | 2025-05-05 09:37 | XMS_ITS | Clinical Summary ---
Author Organization [facility] Address [address] [place] [address] Care Team Providers Care Sessions Clerk Name Role Phone Riya Taylor MD Primary Care Provider [phone] Allergies No known active allergies Medications Medication [...] syndrome) 08/22/2020 Obstructive sleep apnea 01/10/2019 Overview: [facility] Home Polysomnogram: Date 01/08/2019; Wt [...] 93 05/19/2021 1:59 PM EDT Temperature 37.2 C (99 F) 05/19/2021 1:59 PM EDT Respiratory Rate - [...] 2010 Shingrix-Zoster Vaccine (1 of 2) 2010 Pneumococcal Vaccine (1 of 1 - PCV) 2025 Influenza Vaccine (#1) 2025 RSV Adult > 60+ Yrs or [...] age to complete this topic Care Teams Sessions Clerk Relationship Specialty Start Date End Date Riya Taylor MD PCP - General Internal Medicine 04/23/21
== END 2025-05-02 09:16 | disposition home or self-care (01) ==
LOC: HO.HOSX 09:15
PROVIDERS: Visit Provider Physician Assistant
DX: Z13.89 Encounter for screening for other disorder (principal)

== ENCOUNTER 2025-06-26 09:29 | Outpatient (REF) | payer BC, SELFPAY ==
--- NOTE | ~2025-06-26 | XR_ITS ---
EXAMINATION: XR SHOULDER 2 OR MORE VIEWS RIGHT HISTORY: M25.511 - Pain in right shoulder COMPARISON: There are no prior studies available for comparison. FINDINGS: Three views of the right shoulder are submitted. Osseous mineralization is normal. There is no fracture or dislocation. The glenohumeral joint is maintained. There is mild narrowing of the AC joint. A punctate calcification adjacent to the superior glenoid may be related to the rotator cuff. XR/XR shoulder RT min 2V IMPRESSION: Mild narrowing of the AC joint. Possible rotator cuff calcification. Electronically signed by: Philippe Montez MD 06/26/2025 02:05 PM EDT
--- OUTSIDE RECORDS SUMMARY | 2025-06-27 10:37 | XMS_ITS | Clinical Summary ---
Author Organization [facility] Address [address] [place] [address] Care Team Providers Care Surplus Property Disposal Agent Name Role Phone Riya Taylor MD Primary Care Provider [phone] Allergies No known active allergies Medications Medication [...] syndrome) 08/22/2020 Obstructive sleep apnea 01/10/2019 Overview: [facility] Home Polysomnogram: Date 01/08/2019; Wt 119# [...] age to complete this topic Care Teams Surplus Property Disposal Agent Relationship Specialty Start Date End Date Riya Taylor MD PCP - General Internal Medicine 04/23/21
== END 2025-06-26 09:30 | disposition home or self-care (01) ==
LOC: HO.HOSX 09:29
PROVIDERS: Visit Provider Physician Assistant
DX: M77.8 Other enthesopathies, not elsewhere classified (principal)
CPT/HCPCS: 73030; 99212

== ENCOUNTER 2025-06-26 13:35 | Outpatient (AMB) | payer MEDICARE, BC, SELFPAY ==
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
[2025-06-26 13:58] VITALS: BMI 20.3
--- OUTSIDE RECORDS SUMMARY | 2025-06-26 17:28 | XMS_ITS | Clinical Summary ---
Author Organization [facility] Address [address] [place] [address] Care Team Providers Care Outside Sales Executive Name Role Phone Riya Taylor MD Primary Care Provider [phone] Allergies No known active allergies Medications Medication [...] syndrome) 08/22/2020 Obstructive sleep apnea 01/10/2019 Overview: [facility] Home Polysomnogram: Date 01/08/2019; Wt 119# [...] 2010 Shingrix-Zoster Vaccine (1 of 2) 2010 Fall Risk Assessment 2025 Osteoporosis Screening (DEXA Scan) 2025 Pneumococcal Vaccine (1 of 1 - PCV) [...] age to complete this topic Care Teams Outside Sales Executive Relationship Specialty Start Date End Date Riya Taylor MD PCP - General Internal Medicine 04/23/21
== END 2025-06-26 14:13 | disposition home or self-care (01) ==
PROVIDERS: Visit Provider Physician Assistant
DX: M77.8 Other enthesopathies, not elsewhere classified (principal)
CPT/HCPCS: 99213; G2211

== ENCOUNTER → 2025-06-26 13:41 | Outpatient (BNV) | payer BC, SELFPAY | PROVIDERS: Visit Provider Radiology Diagnostic Radiology | DX: M19.011 Primary osteoarthritis, right shoulder (principal) | CPT/HCPCS: 73030 ==

== ENCOUNTER 2025-09-10 07:14 | Outpatient (REF) | payer MEDICARE, BC, SELFPAY ==
--- NOTE | ~2025-09-10 | XR_ITS ---
EXAMINATION: XR HAND 3 OR MORE VIEWS RIGHT HISTORY: M79.641 - Pain in right hand COMPARISON: There are no prior studies available for comparison. FINDINGS: Three views of the right hand are submitted. Osseous mineralization is normal. There is no fracture or dislocation. The joint spaces are preserved. There is a negative variance at the wrist. The soft tissues are unremarkable. XR/XR hand RT min 3V IMPRESSION: No evidence of fracture of the right hand. Electronically signed by: Philippe Montez MD 09/10/2025 03:25 PM DOUG
--- OUTSIDE RECORDS SUMMARY | 2025-09-13 07:18 | XMS_ITS | Clinical Summary ---
Author Organization [facility] Address [address] [place] [address] Care Team Providers Care Woodenware Assembler Name Role Phone Riya Taylor MD Primary Care Provider [phone] Allergies No known active allergies Medications Medication [...] 08/22/2020 Obstructive sleep apnea 01/10/2019 Overview: [facility] Home Polysomnogram: Date 01/08/2019; Wt 119# [...] age to complete this topic Care Teams Woodenware Assembler Relationship Specialty Start Date End Date Riya Taylor MD PCP - General Internal Medicine 04/23/21
--- OUTSIDE RECORDS SUMMARY | 2025-09-13 07:18 | XMS_ITS | Clinical Summary ---
Author Organization [facility] 299 [facility] Address [address] [place] [address] Phone Care Team Providers Care [employer] Car Loader Name Role Phone Riya Taylor MD Primary Care Provider [phone] Medications diphenoxylate-at ropine (LOMOTIL) 2.5-0.025 mg per [...] W/TRANSENDO STENT PLCMT ENDOMETRIAL ABLATION 2010 PROCEDURE: [place] ENDOMETRIAL ABLTJ THERMAL W/O HYSTEROSCOPIC GUID TONSILLECTOMY [...] EDT Office Visit Gastroenterology - [address] [phone] Huyen Perdomo NP [address] [address] Health Maintenance Due Date Last Done Comments [...] patient's age to complete this topic Insurance [facility] Care Teams [employer] Car Loader Relationship Specialty Start Date End Date Riya Taylor MD [address] [place] [address] [address] [place] [address] PCP - General Endocrinology 11/25/24
== END 2025-09-10 07:15 | disposition home or self-care (01) ==
LOC: HO.HOSX 07:14
DX: M65.331 Trigger finger, right middle finger (principal)
CPT/HCPCS: 20550; 73130; 99212; J1100; J2003

== ENCOUNTER 2025-09-10 15:07 | Outpatient (AMB) | payer MEDICARE, BC, SELFPAY ==
[2025-09-10 15:16] VITALS: BP 142/79; PULSE 81; O2SAT 95; BMI 20.3
--- NOTE | 2025-09-10 15:16 | A.OFFVIS_ITS ---
Vital Signs 09/10/25 15:16 Height 5 ft 6 in Weight 126 lb BMI 20.3 BP 142/79 H Blood Pressure Location Lt brachial Position Supine Pulse 81 Pulse Source Pulse Oximeter Pulse Oximetry (%) 95 Oxygen Delivery Method Room Air Intake Visit Reasons: NewProb- Rt hand pain, middle finger Intake Note: Michelle is a 65 year old right hand dominant female who presents today for a New Problem Visit complaining of Right Hand & Right Middle Finger Pain. Patient reports her pain began about 1 year ago, now waking her up through the night. Pain is primarily on the radial aspect of the right middle finger radiating down to the MCP. She also reports it occasional catches. She is taking Tylenol PRN with minimal relief. She denies numbness, tingling. She denies any previous surgeries to the right hand. Allergies No Known Allergies Allergy (Verified 09/10/25 15:17) HPI HPI NewProb- Rt hand pain, middle finger: Details: Michelle is a 65 year old right hand dominant female who presents today for a New Problem Visit complaining of Right Hand & Right Middle Finger Pain. Patient reports her pain began about 1 year ago, now waking her up through the night. Pain is primarily on the radial aspect of the right middle finger radiating down to the MCP. She also reports it occasional catches, approximately once a day to once every couple of days.. She is taking Tylenol PRN with minimal relief. She denies numbness, tingling. She denies any previous surgeries to the right hand. [facility] Medical History (Updated 09/10/25 @ 16:34 by ZACK Dennis) Vitiligo Sternal pain Sternal fracture Osteoporosis Lumbar spondylosis Insomnia IBS (irritable bowel syndrome) History of COVID-19 Depression with anxiety Compression deformity of vertebra Colon polyp Surgical History History of colonoscopy (~03/26/21) Family History Mother Lung cancer Paternal Grandmother Breast cancer Social History Housing: House Alcohol intake: former Patient Tobacco Use Status: Never used Tobacco e-Cigarette/Vaping Use: Never Used Second Hand Smoke Exposure: No service: No Current occupational status: employed 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 Neuro: Normal sensation of the tips of all digits of the right hand at this time Vascular: Cap refill brisk Pain: Minimal tenderness to palpation of the A1 jam of right middle finger No pain with range of motion of the right hand ROM: Patient is able to make a closed fist and extend all digits of the right hand fully Skin: No lacerations or abrasions. General: No ecchymosis, erythema, or evidence of infection. Psych: Appears grossly normal Affect normal Attitude cooperative Office Procedures AMB Tendon Injection Tendon Injection 08237-Lzoven Tendon Sheath Injection All charges added?: Procedure code (CPT) selection complete Assessment & Plan Assessment & Plan (1) Trigger finger, right middle finger: Code(s): M65.331 - Trigger finger, right middle finger Category: Medical Plan 1. Right middle finger trigger finger The risks and benefits of a steroid injection including but not limited to risk of damage to blood vessels, nerves, tendons, infection, skin bleaching, failure to improve symptoms, increased pain, and possible need for further injections or other intervention were discussed with the patient and the patient wishes to proceed with the steroid injection. Once consent was obtained, I sterilely prepped the area over the A1 jam of the flexor tendon sheath of the right middle finger. I then injected the flexor tendon sheath with a combination of 1 mL of dexamethasone (4mg/ml), and 1% lidocaine. The patient did experience an episode of lightheadedness and near- syncope after injection, and did recover well after a brief period of rest. Vitals were taken, with a 95% O2 saturation, pulse of 80, and blood pressure of 142/76 If the patient continues to have locking and catching 4-6 weeks following this injection, they may call to schedule appointment to discuss alternative treatment options Follow-up prn Orders: Orders XR hand RT min 3V Today M79.641 - Pain in right hand Coding Level of Care Code New Pt Level 3 (28984) Diagnoses Trigger finger, right middle finger M65.331 CPT Codes Tendon Injection - Tendon Injection 1: 07324-Vtgich Tendon Sheath Injection ([id number])
--- OUTSIDE RECORDS SUMMARY | 2025-09-10 17:40 | XMS_ITS | Clinical Summary ---
Author Organization [facility] Address [address] [place] [address] Care Team Providers Care Gynecology Teacher Name Role Phone Riya Taylor MD Primary Care Provider [phone] Allergies No known active allergies Medications Medication [...] syndrome) 08/22/2020 Obstructive sleep apnea 01/10/2019 Overview: [facility] Home Polysomnogram: Date 01/08/2019; Wt 119# JENNIFER [...] age to complete this topic Care Teams Gynecology Teacher Relationship Specialty Start Date End Date Riya Taylor MD PCP - General Internal Medicine 04/23/21
--- OUTSIDE RECORDS SUMMARY | 2025-09-10 17:40 | XMS_ITS | Clinical Summary ---
Author Organization [facility] [address] [facility] Address [address] [place] [address] Phone Care Team Providers Care Junior Sales Representative Name Role Phone Riya Taylor MD Primary Care Provider [phone] Medications diphenoxylate-at ropine (LOMOTIL) 2.5-0.025 mg per tabletIndication s:Diarrhea, unspecified type Take 1 tablet by mouth 2 (two) times a day. Max Daily Amount: 2 tablets 180 each 1 5 01/01/20 26 Active famotidine (PEPCID) 40 mg tabletIndication s:Gastroesophage al reflux disease without esophagitis TAKE ONE TABLET BY MOUTH TWICE A DAY 60 tablet 2 5 Active nortriptyline (PAMELOR) 50 mg capsuleIndicatio ns:Irritable bowel syndrome, unspecified type Take 1 capsule (50 mg total) by mouth 1 (one) time each day. at bedtime 90 each 1 5 Active nortriptyline (PAMELOR) 50 mg capsuleIndicatio ns:Irritable bowel syndrome, unspecified type TAKE ONE CAPSULE BY MOUTH DAILY AT BEDTIME 30 capsule 5 09/02/20 25 Discontinu ed(Reorder ) Surgical History Surgery Date Site/Laterality Comments CHOLECYSTECTOMY 2014 PROCEDURE: HISTORICAL CHOLECYSTECTOMY OTHER SURGICAL HISTORY 2016 PROCEDURE: COLONSCOPY THRU STOMA W/TRANSENDO STENT PLCMT ENDOMETRIAL ABLATION 2010 PROCEDURE: NM ENDOMETRIAL ABLTJ THERMAL W/O HYSTEROSCOPIC GUID TONSILLECTOMY PROCEDURE: HISTORICAL TONSILLECTOMY WISDOM TOOTH EXTRACTION PROCEDURE: HISTORICAL WISDOM TEETH EXTRACTION GALLBLADDER SURGERY PROCEDURE:GALLBLADDER SURGERY COLONOSCOPY PROCEDURE:COLONOSCOPY Medical History Medical History Date Comments IBS (irritable bowel syndrome) D X:IBS (irritable bowel syndrome) HTN (hypertension) DX:HTN (hyper tension) Osteoporosis DX:Osteoporosis Lactose intolerance 07/21/2017 DX:Lactose i ntolerance Osteopenia of both hands 10/27/2017 DX:Oste openia of both hands; COMMENT: Xrays with osteopenia 10/2017. Follows with rheumatology, possibly early OA. On meloxicam. NSAID long-term use 12/25/2017 DX:NSAID davida g-term use Anemia DX:Anemia Family History Medical History Relation Name Comments Hypertension Father Cancer Mother Lung cancer Mother Thyroid disease Sister 1 Thyroid disease Sister 2 Cancer Sister 3 Relation Name Status Comments Daughter Alive Father Mother Sister 1 Sister 2 Sister 3 Social History Tobacco Use Types Packs/Day Years Used Date Smoking Tobacco: Never Smokeless Tobacco: Never Alcohol Use Standard Drinks/Week Comments Yes 1 (1 standard drink = 0.6 oz pur e alcohol) Comments Unknown Sex and Gender Information Value Date Recorded Sex Assigned at Not on file Legal Sex Female 5:22 PM EST Gender Identity Not on file Sexual Orientation Not on file Obstetrics History Plan of Treatment Upcoming Encounters Date Type Department Care Team (Late st Contact Info) Description 04/28/2026 2:20 PM EDT Office Visit Gastroenterology - [address] [phone] Huyen Perdomo NP [address] [address] Health Maintenance Due Date Last Done Comments Breast Cancer Screening 1960 Colorectal Cancer Screening: Colonoscopy 1960 DTaP,Tdap,and Td Vaccines (1 - Tdap) 1979 Cervical Cancer Screening: P ap Smear 1981 Pneumococcal Vaccine: 50+ Ye ars (1 of 1 - PCV) 2010 Zoster Vaccines (1 of 2) 2010 Cholesterol Screening (Lipid Panel) 09/17/2022 Hepatitis C Screening 09/17/2022 Osteoporosis Screening (Bone Density Screening) 09/17/2022 Social Influencers of Health Screening 09/17/2022 Hypertension/CHF/CAD Annual BMP Blood Test 10/01/2022 Depression Screening 10/16/2024 Falls Risk Assessment 2025 COVID-19 Vaccine (1 - 2024-2 6 season) 2025 Influenza Vaccine (#1) 2025 RSV Immunization Adult Patie nts (1 - 1-dose 75+ series) 2035 Hepatitis A Vaccines Aged Out 01/24/2011 No long er eligible based on patient's age to complete this topic HIB Vaccines Aged Out No longer eligi ble based on patient's age to complete this topic HPV Vaccines Aged Out No longer eligi ble based on patient's age to complete this topic Hepatitis B Vaccines Aged Out No long er eligible based on patient's age to complete this topic IPV Vaccines Aged Out No longer eligi ble based on patient's age to complete this topic MMR Vaccines Aged Out No longer eligi ble based on patient's age to complete this topic Meningococcal ACWY Vaccine Aged Out N o longer eligible based on patient's age to complete this topic Meningococcal B Vaccine Aged Out No l onger eligible based on patient's age to complete this topic RSV Immunization Patients Un dereck 20 months Aged Out No longer eligible b ased on patient's age to complete this topic Varicella Vaccines Aged Out No longer eligible based on patient's age to complete this topic Insurance [facility] Care Teams Junior Sales Representative Relationship Specialty Start Date End Date Riya Taylor MD [address] [place] [address] [address] [place] [address] PCP - General Endocrinology 11/25/24
== END 2025-09-10 15:53 | disposition home or self-care (01) ==
LOC: HO.HOS 15:07
DX: M65.331 Trigger finger, right middle finger (principal)
CPT/HCPCS: 20550; 99213

== ENCOUNTER → 2025-09-10 15:10 | Outpatient (BNV) | payer MEDICARE, BC, SELFPAY | PROVIDERS: Visit Provider Radiology Diagnostic Radiology | DX: M79.641 Pain in right hand (principal) | CPT/HCPCS: 73130 ==